=== PATIENT | female | born 1990 | race Caucasian/White ===

== ENCOUNTER 2016-07-26 23:01 | Emergency (ER) | payer OTHER ==
[2016-07-27] MEDS ORDERED: RABIES IMMUNE GLOB 150 UNIT/ML 10 ML VIAL IM ONE (00:47)
[2016-07-27] MEDS ORDERED: RABIES VACC,HUMAN DIPLOID (PF) 2.5 UNIT KIT IM ONE (00:47)
--- NOTE | 2016-07-27 00:55 | ED ---
Animal Bite HPI - General Chief Complaint: Animal Bite Stated Complaint: Cat Bite-Stray Time Seen by Provider: 07/26/16 23:53 Source: patient, RN notes reviewed Mode of arrival: ambulatory Limitations: no limitations - History of Present Illness Initial Comments: Patient is a 26-year-old female presents to the emergency room for evaluation of cat Bite. patient states around 10 PM this evening she was bit by a stray cat. Patient states she has a Bite over her left pointer finger. Patient states her last tetanus vaccine was about 3 years ago. Patient states she did not catch the cat. Patient denies a significant pain or drainage from the cat bite. patient denies any other symptoms or complaints. - Related Data Home Medications Medication Instructions Recorded Confirmed Rqp-Hole-Hxdsc Acid 1 each PO DAILY 09/07/13 07/26/16 [-U Capsule] Previous Rx's Medication Instructions Recorded Acetaminophen-Codeine 300-30mg 2 each PO Q4HR PRN #30 tab 09/08/13 [Tylenol w/codeine #3] Ibuprofen [Motrin] 600 mg PO Q6HR PRN #30 tab 09/08/13 Bisacodyl [Dulcolax] 10 mg RECTAL ONCE PRN #2 supp 09/14/13 Nitrofurantoin Monohyd/M-Cryst 100 mg PO Q12HR #14 cap 09/17/13 [Macrobid] Amoxicillin/Potassium Clav 1 each PO Q12HR #20 tab 07/27/16 [Augmentin 875-125 Tablet] Allergies Allergy/AdvReac Type Severity Reaction Status Date / Time cefpodoxime proxetil Allergy Severe Unknown Verified 07/26/16 23:12 [From Lev] Childhood Review of Systems ROS Statement: Those systems with pertinent positive or pertinent negative responses have been documented in the HPI. ROS Other: All systems not noted in ROS Statement are negative. Past Medical History Past Medical History: No Reported History Additional Past Medical History / Comment(s): Obstetric history: This is her first . She has had care with me since 13 weeks gestation. A+ abs neg, Rub nonimmune, RPR Nr, Hep B neg, HIV NR, toxo neg. EDC 8-1-14 by 13 week US. normal 1hr GTT and GBS neg. normal anatomy US at 19 weeks. History of Any Multi-Drug Resistant Organisms: None Reported Past Surgical History: No Surgical Hx Reported Past Anesthesia/Blood Transfusion Reactions: No Reported Reaction Past Psychological History: No Psychological Hx Reported Smoking Status: Former smoker Past Alcohol Use History: None Reported Past Drug Use History: None Reported - Past Family History Mother Family Medical History: No Reported History General Exam - General Exam Comments Initial Comments: sitting in exam room, no acute distress. Limitations: no limitations General appearance: alert, in no apparent distress Head exam: Present: atraumatic, normocephalic, normal inspection Eye exam: Present: normal appearance ENT exam: Present: normal exam Neck exam: Present: normal inspection Respiratory exam: Absent: respiratory distress Extremities exam: Present: normal inspection Back exam: Present: normal inspection Neurological exam: Present: alert, oriented X3, CN II-XII intact, normal gait Psychiatric exam: Present: normal affect, normal mood Skin exam: Present: warm, dry, other (1 cm puncture wound over proximal phalanx of left pointer finger. No surrounding erythema or drainage. No swelling noted. ) Course Vital Signs 07/26/16 07/27/16 23:09 01:58 Temperature 99.0 F 97.8 F Pulse Rate 100 65 Respiratory 18 16 Rate Blood Pressure 119/79 118/62 O2 Sat by Pulse 100 97 Oximetry Medical Decision Making - Medical Decision Making Patient is a 26-year-old female presents to the emergency room for evaluation a cat bite. Patient was bit by a stray cat. Due to unknown history of immunizations from cat, patient was prophylactically treated with rabies vaccine and rabies immunoglobulin. Patient was injected with 0.5 mL of immunoglobulin at the bite site. Patient advised to return on day 3, 7 and 14 for repeat rabies vaccine. patient was placed on Augmentin prophylactically. Patient states she understands everything that was discussed with her. Return parameters discussed. Case discussed Dr. Dhaliwal. Disposition Clinical Impression: Cat bite Disposition: HOME SELF-CARE Condition: Good Instructions: Animal Bite (ED) Additional Instructions: Take Tylenol or Motrin as needed for discomfort. Take antibiotics as directed. Keep wound area clean with antibacterial soap and water daily. Please follow up with primary care provider in 1-2 days. Please return on 07/30, 08/03, and 08/10 for repeat rabies vaccine. If any new symptom arises or symptoms worsen, return to ER as soon as possible. Prescriptions: Amoxicillin/Potassium Clav [Augmentin 875-125 Tablet] 1 each PO Q12HR #20 tab Referrals: None,Stated [Primary Care Provider] - 1-2 days Time of Disposition: 01:44
[2016-07-27 02:00] VITALS: BP 118/62; PULSE 65; RESP 16; TEMP 97.8
== END 2016-07-27 01:58 | disposition home or self-care (01) ==
LOC: EC 23:01
DX: S61.251A Open bite of left index finger without damage to nail, initial encounter (principal); Z23 Encounter for immunization; Z87.891 Personal history of nicotine dependence; Z79.899 Other long term (current) drug therapy; Z88.8 Allergy status to other drugs, medicaments and biological substances; W55.01XA Bitten by cat, initial encounter
CPT/HCPCS: 90375; 90471; 90675; 96372; 99283

== ENCOUNTER 2018-08-13 09:54 | Inpatient (IN) | payer BC ==
[2018-08-18] MEDS ORDERED: OXYTOCIN 10 UNIT/ML 1 ML VIAL IM PRN (06:21)
[2018-08-18] MEDS ORDERED: METHYLERGONOVINE 0.2 MG/ML 1 ML AMP IM PRN (06:21)
[2018-08-18] MEDS ORDERED: LIDOCAINE 0.5% (PF) 5 MG/ML (50 ML SDV) SQ PRN (06:21)
[2018-08-18] MEDS ORDERED: CARBOPROST TROMETHAMINE 250 MCG/ML 1 ML AMP IM PRN (06:21)
[2018-08-18] MEDS ORDERED: TERBUTALINE 1 MG/ML VIAL SQ PRN (06:21)
[2018-08-18] MEDS ORDERED: OXYTOCIN 30 UNITS/500 ML NS 30 UNIT in SALINE 1 500ML.BAG IV SCH (06:30)
[2018-08-18 06:33] VITALS: BMI 34.1
[2018-08-18] MEDS: LACTATED RINGERS 1,000 ML IV SCH ×2 (06:52→10:53)
[2018-08-18 07:08] LABS: Basophils % (A) 0 %; Eosinophils # (A) 0.1 k/uL (0-0.7); Eosinophils % (A) 1 %; HCT 33.9 % (34.0-46.0); HGB 10.8 gm/dL (11.4-16.0); Hypochromasia Moderate; Lymphocytes % (A) 21 %; MCH 25.3 pg (25.0-35.0); MCHC 31.9 g/dL (31.0-37.0); MCV 79.3 fL (80.0-100.0); Mean Platelet Volume 11.9; Monocytes # (A) 0.8 k/uL (0-1.0); Monocytes % (A) 8 %; Neutrophils # (A) 6.4 k/uL (1.3-7.7); Neutrophils % (A) 67 %; Platelet Count 173 k/uL (150-450); RBC 4.28 m/uL (3.80-5.40); RDW 15.8 % (11.5-15.5); WBC 9.6 k/uL (3.8-10.6)
--- NOTE | 2018-08-18 08:19 | P.HPOB ---
History of Present Illness H&P Date: 08/18/18 Chief Complaint: induction of labor 28 year old presents at 40 weeks 4 days for induction of labor. Her cervix is 3/70/-2. She is esteban irregularly. heart tones 130 with moderate variability and accelerations. Review of Systems All systems: negative Constitutional: Denies chills, Denies fever Eyes: denies blurred vision, denies pain Ears, nose, mouth and throat: Denies headache, Denies sore throat Cardiovascular: Denies chest pain, Denies shortness of breath Respiratory: Denies cough Gastrointestinal: Denies abdominal pain, Denies diarrhea, Denies nausea, Denies vomiting Genitourinary: Denies dysuria, Denies hematuria Musculoskeletal: Denies myalgias Integumentary: Denies pruritus, Denies rash Neurological: Denies numbness, Denies weakness Psychiatric: Denies anxiety, Denies depression Endocrine: Denies fatigue, Denies weight change Past Medical History Past Medical History: No Reported History Additional Past Medical History / Comment(s): Obstetric history: First was a vaginal delivery at 40 weeks 8 lbs. 8 oz. This is her second . She has had care with me since the first trimester. A+ abs neg, Rub nonimmune, RPR Nr, Hep B neg, HIV NR, toxo neg. EDC by six-week ultrasound normal 1hr GTT and GBS neg. normal anatomy US at 19 weeks with a low-lying placenta, this did resolve in the third trimester. History of Any Multi-Drug Resistant Organisms: None Reported Past Surgical History: No Surgical Hx Reported Past Anesthesia/Blood Transfusion Reactions: No Reported Reaction Past Psychological History: No Psychological Hx Reported Smoking Status: Former smoker Past Alcohol Use History: None Reported Past Drug Use History: None Reported - Past Family History Mother Family Medical History: CVA/TIA, Hypertension Medications and Allergies Home Medications Medication Instructions Recorded Confirmed Type Cyx-Quev-Cveui Acid 1 each PO DAILY 09/07/13 08/18/18 History [-U Capsule] Allergies Allergy/AdvReac Type Severity Reaction Status Date / Time cefpodoxime proxetil Allergy Severe Unknown Verified 07/26/16 23:12 [From Vantin] Childhood aloe vera [From Dermoplast] Allergy Swelling Verified 08/18/18 06:19 benzocaine [From Dermoplast] Allergy Swelling Verified 08/18/18 06:19 lanolin [From Dermoplast] Allergy Swelling Verified 08/18/18 06:19 Exam Osteopathic Statement: *. No significant issues noted on an osteopathic structural exam other than those noted in the History and Physical/Consult. Vital Signs Temp Pulse Resp BP Pulse Ox 08/18/18 06:18 97.0 F L 101 H 20 143/80 100 Intake and Output 08/17/18 08/18/18 08/18/18 22:59 06:59 14:59 Other: Weight 92.986 kg Heart: Regular rate and rhythm Lungs: Clear to auscultation bilaterally Abdomen: Soft, nontender Extremities: Negative Homans sign Results Result Diagrams: 08/18/18 06:24 Abnormal Lab Results - Last 24 Hours (Table) 08/18/18 Range/Units 06:24 Hgb 10.8 L (11.4-16.0) gm/dL Hct 33.9 L (34.0-46.0) % MCV 79.3 L (80.0-100.0) fL RDW 15.8 H (11.5-15.5) % Assessment and Plan (1) Normal labor Current Visit: Yes Status: Acute Code(s): O80 - ENCOUNTER FOR FULL-TERM UNCOMPLICATED DELIVERY; Z37.9 - OUTCOME OF DELIVERY, UNSPECIFIED SNOMED Code(s): 16648606 Plan: 1. Induction of labor with amniotomy and Pitocin 2. Anticipate normal vaginal delivery
[2018-08-18 08:30] LABS: Large Platelets Present
[2018-08-18] MEDS ORDERED: SODIUM CHLORIDE 0.9% 100 ML BAG ONE (10:29)
[2018-08-18] MEDS ORDERED: fentaNYL (PF) 50 MCG/ML 5 ML AMP ONE (10:29)
[2018-08-18] MEDS ORDERED: ROPIVACAINE 5MG/ML 20ML VIAL ONE (10:29)
[2018-08-18] MEDS ORDERED: ZOLPIDEM 5 MG TAB PO PRN (13:55)
[2018-08-18] MEDS ORDERED: diphenhydrAMINE 50 MG/ML 1 ML VIAL IVP PRN ×2 (13:55)
[2018-08-18] MEDS ORDERED: ACETAMINOPHEN TAB 325 MG TAB PO PRN (13:55)
[2018-08-18] MEDS ORDERED: diphenhydrAMINE 25 MG CAP PO PRN (13:55)
[2018-08-18] MEDS ORDERED: WITCH HAZEL 1 EACH MED..PAD TOPICAL PRN (13:55)
[2018-08-18] MEDS ORDERED: SIMETHICONE 80 MG CHEWABLE PO PRN (13:55)
[2018-08-18] MEDS ORDERED: diphenhydrAMINE 50 MG CAP PO PRN (13:55)
[2018-08-18] MEDS ORDERED: LANOLIN CREAM 5 GM TUBE TOPICAL PRN (13:55)
[2018-08-18] MEDS ORDERED: HYDROCORTISONE 2.5% RECTAL CREAM 30 GM TUBE RECTAL PRN (13:55)
[2018-08-18] MEDS ORDERED: OXYTOCIN 20 UNITS/1000 ML NS 1,000 ML IV SCH (14:00)
[2018-08-19] MEDS: SENNOSIDES-DOCUSATE SODIUM 1 EACH TAB PO SCH (00:23)
[2018-08-19] MEDS: IBUPROFEN 600 MG TAB PO PRN ×2 (07:58→17:47)
[2018-08-19 08:07] LABS: Anisocytosis Slight; Basophils % (A) 0 %; Eosinophils # (A) 0.1 k/uL (0-0.7); Eosinophils % (A) 1 %; HGB 9.5 gm/dL (11.4-16.0); Hypochromasia Slight; Lymphocytes # (A) 1.5 k/uL (1.0-4.8); Lymphocytes % (A) 13 %; MCH 25.3 pg (25.0-35.0); MCHC 31.6 g/dL (31.0-37.0); MCV 80.2 fL (80.0-100.0); Mean Platelet Volume 11.5; Monocytes # (A) 0.8 k/uL (0-1.0); Monocytes % (A) 6 %; Neutrophils # (A) 9.4 k/uL (1.3-7.7); Neutrophils % (A) 78 %; Platelet Count 169 k/uL (150-450); RBC 3.73 m/uL (3.80-5.40); RDW 16.2 % (11.5-15.5)
--- NOTE | 2018-08-19 08:59 | P.PROBDLV ---
Vaginal Delivery Note - . Vaginal Delivery Note: 28 year old presents at 40 weeks 4 days for induction of labor. Her cervix is 3/70/-2. She is esteban irregularly. heart tones 130 with moderate variability and accelerations. Amniotomy was performed at 7:01 AM and clear fluid noted. Pitocin was also started. When she was uncomfortable she did get an epidural. Her cervix was completely dilated at 12:30 PM. She pushed, and delivered a viable male over intact perineum under epidural anesthesia at 1334. Head delivered OA, nuchal cord 2 easily reduced, anterior shoulder which was the left shoulder delivered gentle downward traction followed by posterior shoulder and rest of body. Nose and mouth bulb suctioned, cord clamped and cut, infant placed mother's abdomen. Apgars 9, 9, weight 9 lbs. 4 oz. Placenta delivered spontaneously, intact with three-vessel cord at 1336. Vagina, cervix, perineum were inspected. Right midline laceration was repaired with 3-0 Vicryl. Estimated blood loss 200 mL. Mother and baby in stable condition.
--- NOTE | 2018-08-19 09:08 | P.DS ---
Providers Date of admission: 08/18/18 06:00 Expected date of discharge: 08/19/18 Attending physician: Giana Honeycutt Primary care physician: Stated None - Discharge Diagnosis(es) (1) Normal labor Current Visit: Yes Status: Resolved (2) Normal vaginal delivery Current Visit: Yes Status: Acute Hospital Course: Patient presented for induction of labor. She underwent a normal vaginal delivery. Her course was uncomplicated. She denies nausea, vomiting, chest pain, shortness of breath or calf pain. She'll be discharged home day #1 in stable condition follow-up with me in 6 weeks. Plan - Discharge Summary New Discharge Prescriptions: New Ibuprofen [Motrin] 600 mg PO Q6HR PRN #30 tab PRN Reason: Mild Pain Or Fever >= 100.5 No Action Mpo-Mhip-Lxybv Acid [-U Capsule] 1 each PO DAILY Discharge Medication List Oas-Pmza-Ccxpg Acid [-U Capsule] 1 each PO DAILY 09/07/13 [History] Ibuprofen [Motrin] 600 mg PO Q6HR PRN #30 tab 08/19/18 [Rx] Follow up Appointment(s)/Referral(s): Giana Honeycutt DO [Doctor of Osteopathic Medicine] - 6 Weeks Discharge Disposition: HOME SELF-CARE
[2018-08-19 12:38] LABS: Large Platelets Present
[2018-08-20] MEDS: IBUPROFEN 600 MG TAB PO PRN ×2 (00:21→12:13)
[2018-08-20] MEDS: SENNOSIDES-DOCUSATE SODIUM 1 EACH TAB PO SCH ×2 (01:14→12:15)
[2018-08-20 07:49] VITALS: BP 121/74; PULSE 99; RESP 16; TEMP 98.1
== END 2018-08-20 15:55 | disposition home or self-care (01) | DRG 807 ==
LOC: 4FBP 08-18 06:00
PROVIDERS: ADMIT Obstetrics & Gynecology; ATTEND Obstetrics & Gynecology
PROC: 10E0XZZ Delivery of Products of Conception, External Approach (ICD-10-PCS; principal; 2018-08-18)
PROC: 0HQ9XZZ Repair Perineum Skin, External Approach (ICD-10-PCS; 2018-08-18)
PROC: 3E033VJ Introduction of Other Hormone into Peripheral Vein, Percutaneous Approach (ICD-10-PCS; 2018-08-18)
PROC: 10907ZC Drainage of Amniotic Fluid, Therapeutic from Products of Conception, Via Natural or Artificial Opening (ICD-10-PCS; 2018-08-18)
PROC: 00HU33Z Insertion of Infusion Device into Spinal Canal, Percutaneous Approach (ICD-10-PCS; 2018-08-18)
PROC: 3E0R3BZ Introduction of Anesthetic Agent into Spinal Canal, Percutaneous Approach (ICD-10-PCS; 2018-08-18)
DX: O69.81X0 Labor and delivery complicated by cord around neck, without compression, not applicable or unspecified (principal); Z37.0 Single live birth; O70.0 First degree perineal laceration during delivery; Z3A.40 40 weeks gestation of pregnancy; Z79.899 Other long term (current) drug therapy; Z87.891 Personal history of nicotine dependence; Z88.4 Allergy status to anesthetic agent; Z88.1 Allergy status to other antibiotic agents; Z91.048 Other nonmedicinal substance allergy status; Z82.49 Family history of ischemic heart disease and other diseases of the circulatory system; Z82.3 Family history of stroke
CPT/HCPCS: 85025; 86850; 86900; 86901